=== PATIENT | male | born 2000 | race African-American/Black ===

== ENCOUNTER 2018-02-09 19:19 | Emergency (ER) | payer OTHER ==
[2018-02-09] MEDS: diphenhydrAMINE 50 MG CAP PO (22:28)
== END 2018-02-09 22:31 | disposition home or self-care (01) ==
LOC: M ED 19:19
DX: S30.860A Insect bite (nonvenomous) of lower back and pelvis, initial encounter (principal); W57.XXXA Bitten or stung by nonvenomous insect and other nonvenomous arthropods, initial encounter; Y92.59 Other trade areas as the place of occurrence of the external cause; Y93.84 Activity, sleeping; Y99.9 Unspecified external cause status; L29.9 Pruritus, unspecified; L50.9 Urticaria, unspecified; J45.909 Unspecified asthma, uncomplicated
CPT/HCPCS: 99283